=== PATIENT | female | born 1950 | race Caucasian/White ===

== ENCOUNTER → 2016-08-02 | Outpatient (CLI) | payer OTHER, MEDICARE ==
[~2016-08-02] MED LIST: CALCIUM 500 +1 EAC5 PO
--- NOTE | ~2016-08-02 | CNG ---
[facility] [place] [address] CYTO-NONGYN REPORT PROCEDURE Name: SUBHA HERRMANN RIKI Room #: REG [facility] M..#: [id number] Admission: 08/02/16 Date of : 52 Discharge: Report #: [id number] Path Case #: [id number] CYTOPATHOLOGY REPORT COLLECTION DATE: 08/02/2016 RECEIVED DATE: 08/06/2016 SUBMITTING PHYS: Dr. Logan Larios OTHER PHYS: Dr. Alvaro Harrington CLINICAL HISTORY: Left breast cyst. SPECIMEN(S) RECEIVED: A.Fine needle aspiration, Left breast cyst * * * * * * * * * * * * FINAL DIAGNOSIS: A. Left breast cyst, Fine needle aspiration: ATYPICAL DUCTAL EPITHELIAL CELLS IDENTIFIED ALONG WITH FOAM CELLS, MACROPHAGES AND INFLAMMATORY CELLS. COMMENT: A single group of atypical ductal epithelial cells is identified with focal apocrine features. The cells show rounded nuclei along with mild overlapping. These cells may represent reactive apocrine epithelial cells lining a cystic duct. The background ductal epithelial cells are unremarkable. Fine needle aspiration cannot distinguish atypical cells due to lack of intact architecture. The differential diagnosis for these cells is partially sampled atypical ductal lesion or carcinoma. The interpretation is limited due to the nature of the lesion. Please note that sample may not be cash posting representative. Correlate clinically and follow-up as indicated. PATHOLOGIST: Karolina Velazquez M.D. REPORT ELECTRONICALLY SIGNED BY: Karolina Velazquez M.D. DATE/TIME: 08/07/2016 15:28 * * * * * * * * * * * * GROSS PATHOLOGY: A. Fine needle aspiration, Left breast cyst: The specimen is labeled "Subha Herrmann Riki". Two mL of red cloudy fluid from the needle rinse is submitted and One ThinPrep slide and a cell block were prepared from this material. (clt 08.06.2016) SPOT CLEANER(S): EVERETT Cummings[facility] INITIAL CPT CODE(S): A; 37322, 48296 [facility] at [address] [address] CYTO-NONGYN REPORT PROCEDURE Name: ARACELILIMA CHANELLaquita LYN Room #: REG [facility] Gonzalez#: [id number] Admission: 08/02/16 Date of : 52 Discharge: Report #: [id number] Path Case #: [id number] , [place] [address] Technical [facility] performed [facility] at [address] [place] [address]., [address], [place] [address]. [address], [facility] [address] [place] [address] PHONE: [phone] DIRECTOR: Serafin Cameron M.D. * * * END OF REPORT * * *
== END | disposition home or self-care (01) ==
LOC: ULTRA 05:58
DX: D24.2 Benign neoplasm of left breast (principal)

== ENCOUNTER → 2016-08-21 | Outpatient (CLI) | payer OTHER, MEDICARE ==
--- NOTE | ~2016-08-21 | S ---
[facility] [place] [address] SURGICAL PATH RPT PROCEDURE Name: SUBHA HERRMANN RIKI Room #: REG [facility].#: [id number] Admission: 08/21/16 Date of : 52 Discharge: Report #: [id number] Path Case #: [id number] PATHOLOGY REPORT COLLECTION DATE: 08/21/2016 RECEIVED DATE: 08/21/2016 SUBMITTING PHYS: Dr. Alvaro Harrington OTHER PHYS: Dr. Logan Larios * AMENDED (CORRECTED) REPORT * SPECIMEN(S) RECEIVED: A.Left breast 8:00 3 cm * * * * * * * * * * * * FINAL DIAGNOSIS: Breast, left breast 8 o'clock 3 cm, needle core biopsy: - CONSISTENT WITH A SCLEROSING INTRADUCTAL PAPILLOMA ASSOCIATED WITH FOCAL ATYPIA, MEASURING ONE MM IN GREATEST DIMENSION. - Negative for malignancy. COMMENT: Immunohistochemical stains are performed. (block A1) P63 intact myoepithelial cells present within the entire lesion [facility] intact myoepithelial cells present within the entire lesion CK5/6 focal mosaic pattern loss identified ER focal diffuse reactivity Co-review: Dr. Mayra Camarillo (IUV:all; d/t: 08/22/2016) 08/28/16 Corrected report is issued to correct a typographical error (atypia spelled as aypia) in the final diagnosis. IUV/all PATHOLOGIST: Karolina Velazquez M.D. REPORT ELECTRONICALLY SIGNED BY: Karolina Velazquez M.D. DATE/TIME: 08/28/2016 09:08 * * * * * * * * * * * * GROSS PATHOLOGY: Received in formalin labeled "Subha Herrmann, left breast 8:00 3 cm," are multiple needle cores of yellow-neil fibrofatty tissue measuring 1.8 x 1.0 x 0.3 cm in aggregate dimensions. The tissue is submitted in its entirety in cassette A1. The cold ischemic time is 5 minutes. The total formalin fixation time is 6 hours and 10 minutes. (CAA; 08/21/2016) [address] [address] SURGICAL PATH RPT PROCEDURE Name: SUBHA HERRMANN RIKI Room #: REG [facility] Gonzalez#: [id number] Admission: 08/21/16 Date of : 52 Discharge: Report #: [id number] Path Case #: [id number] CLINICAL HISTORY: Nodule INITIAL CPT CODE(S): A; 87877, 77047, 95837, 73077, 33790 Professional services performed by [facility] at [address] , [place] [address] Technical services performed by [facility] at [address] [place] [address], [facility] [address], [place] [address]. [facility] [place] [address] PHONE: [phone] DIRECTOR: Serafin Cameron M.D. * * * END OF REPORT * * *
== END | disposition home or self-care (01) ==
LOC: RAD 01:06
DX: D24.2 Benign neoplasm of left breast (principal); N63 Unspecified lump in breast

== ENCOUNTER → 2017-05-07 | Outpatient (CLI) | payer OTHER, MEDICARE ==
--- NOTE | ~2017-05-07 | S ---
[facility] [place] [address] SURGICAL PATH RPT PROCEDURE Name: SUBHA CHARLES Room #: REG [facility].#: [id number] Admission: 05/07/17 Date of : 52 Discharge: Report #: [id number] Path Case #: [id number] PATHOLOGY REPORT COLLECTION DATE: 05/07/2017 RECEIVED DATE: 05/07/2017 SUBMITTING PHYS: Dr. Maxwell Wise OTHER PHYS: Dr. Logan Larios SPECIMEN(S) RECEIVED: A.Sigmoid colon polyp B.Rectal polyp * * * * * * * * * * * * FINAL DIAGNOSIS: A. Polyp, sigmoid colon, endoscopic biopsy: - Hyperplastic polyp. - Negative for dysplasia. B. Polyp, rectal polyp, endoscopic biopsy: - Tubular adenoma. - Negative for high grade dysplasia. (IUV:cierra; 05/08/2017) PATHOLOGIST: Karolina Velazquez M.D. REPORT ELECTRONICALLY SIGNED BY: Karolina Velazquez M.D. DATE/TIME: 05/08/2017 14:55 * * * * * * * * * * * * GROSS PATHOLOGY: A. Received in formalin labeled "QUENTIN Jordan of polyp at sigmoid colon," are 2 segments of thomas soft tissue measuring 0.4 x 0.4 x 0.4 cm in aggregate dimensions and ranging from 0.3 to 0.4 cm in maximum dimension. The specimen is submitted entirely in cassette A1. B. Received in formalin labeled "Subha Alize, BX of rectal polyp," are 2 segments of thomas soft tissue measuring 0.6 x 0.4 x 0.2 cm in aggregate dimensions and ranging from 0.3 to 0.4 cm in maximum dimension. The specimen is submitted entirely in cassette B1. (TSD; 05/07/2017) CLINICAL HISTORY: Pre-OP DX: Screening Post-OP DX: Colon polyps INITIAL CPT CODE(S): A; [address] [facility] [place] [address] SURGICAL PATH RPT PROCEDURE Name: SUBHA CHARLES RIKI Room #: [facility].#: [id number] Admission: 05/07/17 Date of : 52 Discharge: Report #: [id number] Path Case #: [id number] B; [id number] Professional services performed by [facility] at [address] , [place] [address] Technical services performed by [facility] at [address] [place] [address], [facility] [address], [place] [address]. [facility] [address] [place] [address] PHONE: [phone] DIRECTOR: Serafin Cameron M.D. * * * END OF REPORT * * *
--- NOTE | ~2017-05-07 | P ---
[facility] [place] [address] PROCEDURE REPORT Name: AGUS CHARLES RIKI [facility] [id number] Admission: 05/07/17 Attend Phys: Maxwell Banks Discharge: Date of : 52 Report #: [id number] THIS REPORT FOR: //name// CC: Maxwell Avery MD DATE OF SERVICE: 05/07/2017 PROCEDURE PERFORMED: Colonoscopy with biopsies. HISTORY OF PRESENT ILLNESS: The patient is a 67-year-old female who presents today for a screening colonoscopy. She denies any symptoms. No family history of colon cancer. Last colonoscopy was greater than 10 years ago. DESCRIPTION OF PROCEDURE: The risks and benefits of the procedure were explained to the patient, those risks including but not limited to bleeding, perforation and the risk of sedation. She understood these risks and gave informed consent. Sedation was given using propofol per anesthesia. Next, a digital rectal exam was initially performed, which was normal. Next, using a standard Fuginon colonoscope, the scope was placed in the patient's anus and advanced under direct vision to the cecum. The overall prep was excellent. Cecum and ileocecal valve were normal in appearance. The ascending, transverse and descending colon were normal. In the sigmoid colon a 5 mm sessile polyp was noted. This was removed with cold forceps, otherwise normal. In the rectum, there was a 4 mm sessile polyp. This is also removed with cold forceps, small nonbleeding external hemorrhoid was noted, otherwise normal colonoscopy. The scope was then withdrawn and the procedure terminated. The patient tolerated the procedure well. IMPRESSION: 1. Two small colonic polyps. 2. External hemorrhoids. 3. Otherwise, normal colonoscopy RECOMMENDATIONS: 1. Await biopsy results. 2. If polyps are hyperplastic, repeat in 10 years, if adenomatous polyp, repeat in 5 years. Thank you for allowing me to participate in her care. <ELECTRONICALLY SIGNED> By: Maxwell Wise MD 05/09/17 0825 1045 1118 Maxwell Wise MD /nt
== END | disposition home or self-care (01) ==
LOC: GI 08:06
DX: Z12.11 Encounter for screening for malignant neoplasm of colon (principal); D12.8 Benign neoplasm of rectum; K63.5 Polyp of colon
CPT/HCPCS: 62110; 62900

== ENCOUNTER → 2017-09-15 | Outpatient (CLI) | payer OTHER, MEDICARE | LOC: RAD 04:28 | DX: Z12.31 Encounter for screening mammogram for malignant neoplasm of breast (principal) ==

== ENCOUNTER → 2018-09-21 | Outpatient (CLI) | payer OTHER, MEDICARE | LOC: BC 09:17 | DX: Z12.31 Encounter for screening mammogram for malignant neoplasm of breast (principal) ==

== ENCOUNTER → 2019-12-23 | Outpatient (CLI) | payer OTHER, MEDICARE | LOC: BC 12:55 | DX: Z12.31 Encounter for screening mammogram for malignant neoplasm of breast (principal) ==

== ENCOUNTER → 2019-12-30 | Outpatient (CLI) | payer OTHER, MEDICARE | LOC: ULTRA 08:09 → BC 08:09 | PROVIDERS: ATTEND Radiology Diagnostic Radiology | DX: N60.02 Solitary cyst of left breast (principal); Z85.3 Personal history of malignant neoplasm of breast ==

== ENCOUNTER → 2020-10-30 | Outpatient (CLI) | payer OTHER, MEDICARE | LOC: LAB 09:56 | PROVIDERS: ATTEND Anesthesiology | DX: Z01.812 Encounter for preprocedural laboratory examination (principal); Z20.822 Contact with and (suspected) exposure to COVID-19 ==